=== PATIENT | male | born 1960 | race Caucasian/White ===

== ENCOUNTER 2019-05-22 22:50 | Emergency (ER) | payer OTHER ==
[2019-05-22 23:36] VITALS: TEMP 98.4; BMI 33.4
--- NOTE | 2019-05-23 02:12 | PDOC ---
History of Present Illness - General Chief Complaint: Blood Pressure Problem Stated Complaint: HIGH BP Time Seen by Provider: 05/23/19 02:11 - History of Present Illness Initial Comments: Suellen Birch is a 58yo Spanish-speaking man (adult daughter available to translate) with a PMH of HTN who presents with intermittent vomiting for one year that worsened over the past 3 weeks. He also reports feeling generally weak and shaky recently. The vomiting has been nonbloody, nonbilious. He says that he has been vomiting whenever he tries to eat recently. This had been happening for thep ast year, but not quite as frequently. He recently went home to [facility] last month, and he was given a medication there that made him feel much better. However, he forgot it there and is not sure what it was. Mr Birch also reports that he has been trying to cut back on his alcohol consumption recently. He drinks two cups of an Spanish liquor per day, and he has been drinking daily since age 12. When he is feeling ill, though, he says that drinking a small amount makes him feel better. He denies ever having had tremors, seizures, hospitalization for withdrawal, or other problems when he has stopped drinking in the past. His daughter states that he successfully quit for an entire year previously. He denies any fevers, chills, cough, night sweats, weight loss, abdominal pain, cough, change in bowel habits, or other recent symptoms. He does endorse chronic back pain, and states he is unable to work. He comments that he has to stay home by himself while everyone else is at work, and he has been upset about it. He denies any smoking or drug use. Past History - Past Medical History Allergies/Adverse Reactions: Allergies Allergy/AdvReac Type Severity Reaction Status Date / Time No Known Allergies Allergy Verified 05/22/19 23:35 Home Medications: Ambulatory Orders Famotidine 20 mg PO UTDICT #30 tablet 05/23/19 Ondansetron [Zofran *Odt*] 4 mg SL TID PRN #21 od.tablet 05/23/19 COPD: No - Psycho Social/Smoking Cessation Hx Smoking History: Never smoked Have you smoked in the past 12 months: No Information on smoking cessation initiated: No Hx Alcohol Use: No Drug/Substance Use Hx: No Review of Systems - Review of Systems Comments:: General: No fevers, no chills, no weight or appetite change, + malaise HEENT: No changes in vision, no changes in hearing, no congestion, no sore throat CV: No chest pain, no palpitations, no LE edema Pulm: No SOB, no cough, no wheezing GI: +Frequent nausea/vomiting, no change in bowel habits, no melena. +BRBPR ( chronic) : No frequency, no urgency, no dysuria Musc: + chronic back pain, no joint swelling, no recent injury Skin: No rash, no lesions, no erythema Endo: No excessive thirst, no heat/cold intolerance Heme: No unusual bruising or bleeding, no swollen glands Neuro: No syncope, no numbness/tingling, no focal weakness Vasc: No claudication Psych: +Depressed, no SI or HI *Physical Exam - Vital Signs Last Vital Signs Temp Pulse Resp BP Pulse Ox 98.4 F 74 18 148/60 100 05/22/19 23:05 05/22/19 23:05 05/22/19 23:05 05/22/19 23:05 05/22/19 23:05 - Physical Exam General: Comfortable, no acute distress HEENT: Atraumatic, PERRL, EOMI, MMM, voice normal Cards: RRR, no murmur appreciated Pulm: Comfortable on room air, clear to auscultation bilaterally Abd: Soft, nontender, nondistended : No CVA tenderness Rectal: Pt declined Ext: Atraumatic. No LE edema. ROM intact. WWP Skin: Normal color, no rashes or lesions Neuro: A&Ox3, CN grossly intact, normal speech, motor/sensory grossly intact and symmetric Psych: Mood appropriate to situation ED Treatment Course - LABORATORY CBC & Chemistry Diagram: 05/23/19 03:10 05/23/19 03:10 Medical Decision Making - Medical Decision Making 05/23/19 02:12 Suellen Birch is a 58yo Spanish-speaking man (adult daughter available to translate) with a PMH of HTN who presents with intermittent NBNB vomiting for one year that worsened over the past 3 weeks. He also reports feeling generally weak and shaky recently. He endorses heavy drinking since age 12 and has been trying to cut down recently. - Broad differential including GERD, gastritis, pancreatitis, cholecystitis, mesenteric ischemia, alcohol withdrawal. No chest pain, SOB or other symptoms suggesting cardiac origin of vomiting - CBC, CMP, lipase, lactate - IVF, famotidine, maalox 05/23/19 04:14 - Labs reviewed. Unremarkable - Pt requesting to leave at this point. Will PO challenge. If able to stay hydrated at home, will d/c home - Will give Pepcid and Zofran to take PRN at home - Advised patient to follow up with a PMD and GI within the next week for his continued symptoms. Also recommending considering detox for alcohol use. Discussed with Dr Pb Mohan PGY2 Discharge - Discharge Information Problems reviewed: Yes Clinical Impression/Diagnosis: Vomiting Qualifiers: Vomiting type: unspecified Vomiting Intractability: non-intractable Nausea presence: with nausea Qualified Code(s): R11.2 - Nausea with vomiting, unspecified Condition: Stable Disposition: HOME - Admission No - Additional Discharge Information Prescriptions: Famotidine 20 mg PO UTDICT #30 tablet Ondansetron [Zofran *Odt*] 4 mg SL TID PRN #21 od.tablet PRN Reason: Nausea And/Or Vomiting - Follow up/Referral Referrals: Azra Byrne MD [Primary Care Provider] - Alexandre Davila MD [Staff Physician] - Livia Hernandez MD [Staff Physician] - Clay Cary DO [Staff Physician] - - Patient Discharge Instructions Patient Printed Discharge Instructions: Alcohol Use Disorder, DI for Gastritis Additional Instructions: Discharge Instructions: You were seen in the emergency department for chronic vomiting and upset stomach. Your blood tests were all normal, but you need additional testing to see what is causing your vomiting. Your alcohol use may be making your symptoms worse. Home Care: - You have been prescribed two medications. Famotidine should be taken every day , one hour before dinner. Take this even if you are feeling well. - Ondansetron may be taken every 8 hours only if needed for nausea or vomiting. - Make an appointment to see your regular doctor within the next week. - You have been given information for several GI specialists (Dr Cary, Dr Davila, Dr Hernandez). You should call one of them and make an appointment within the next 1-2 weeks. You most likely need additional testing of your stomach. - Seek immediate care if you have continued symptoms, you are unable to eat or drink, you become dehydrated, you see blood in your vomit, or you have any other medical emergency. - Post Discharge Activity
[2019-05-23] MEDS ORDERED: FAMOTIDINE 20 MG/50 ML IVPB 20 MG/50 ML MG IVPB ONE ×2 (02:40→03:39)
[2019-05-23] MEDS ORDERED: ONDANSETRON 4 MG/2 ML VIAL IVPUSH ONE (02:40)
[2019-05-23] MEDS ORDERED: SODIUM CHLORIDE 0.9% 500 ML INFUS.BAG IV ONE (02:40)
--- NOTE | 2019-05-23 03:05 | PDOC ---
Attending Attestation - Resident Resident Name: Mikaela Mohan - ED Attending Attestation I have performed the following: I have examined & evaluated the patient, The case was reviewed & discussed with the resident, I agree w/resident's findings & plan, Exceptions are as noted - HPI HPI: 05/23/19 05:23 See resident HPI - Physicial Exam PE: 05/23/19 05:23 Agree with documented exam - Medical Decision Making 05/23/19 05:23 Endorsing heavy, frequent etoh consider gastritis, pancreatitis f/u labs symptomatic tx re-eval dispo per clinical course
[2019-05-23] MEDS ORDERED: ONDANSETRON 4 MG/2 ML VIAL ONE (03:39)
[2019-05-23 03:40] LABS: BASO % 0.7 % (0-2.0); EOS % 0.5 % (0-4.5); HEMATOCRIT 47.9 % (35.4-49); HEMOGLOBIN 16.9 GM/dL (11.7-16.9); LYMPH % 28.2 % (8-40); MCH 33.2 pg (25.7-33.7); MCHC 35.3 g/dl (32.0-35.9); MEAN CELL VOLUME 94.1 fl (80-96); MEAN PLT VOLUME 8.5 fl (7.5-11.1); NEUT % 63.6 % (42.8-82.8); PLATELET COUNT 194 K/MM3 (134-434); RBC 5.09 M/mm3 (4.00-5.60); RDW 12.5 % (11.9-15.9); WHITE BLOOD COUNT 8.3 K/mm3 (4.0-10.0)
[2019-05-23 03:56] LABS: MAGNESIUM 2.4 mg/dL (1.8-2.4); PHOSPHOROUS 2.8 mg/dL (2.5-4.9)
[2019-05-23 03:59] LABS: BILIRUBIN,TOTAL 1.5 mg/dL (0.2-1); BLOOD UREA NITROGEN 16.8 mg/dL (7-18); CALCIUM 8.5 mg/dL (8.5-10.1); CREATININE 0.9 mg/dL (0.55-1.3); POTASSIUM 4.1 mmol/L (3.5-5.1); TOT PROT 7.7 g/dl (6.4-8.2)
[2019-05-23 05:08] VITALS: BP 143/63; PULSE 76
== END 2019-05-23 04:35 | disposition home or self-care (01) ==
LOC: JER 22:50
PROC: 3E033GC Introduction of Other Therapeutic Substance into Peripheral Vein, Percutaneous Approach (ICD-10-PCS; principal; 2019-05-22)
PROC: 3E033GC Introduction of Other Therapeutic Substance into Peripheral Vein, Percutaneous Approach (ICD-10-PCS; 2019-05-22)
DX: R11.2 Nausea with vomiting, unspecified (principal); F10.10 Alcohol abuse, uncomplicated
CPT/HCPCS: 36415; 80053; 83605; 83690; 83735; 84100; 85025; 99283-25